=== PATIENT | female | born 1970 | race Two or more races ===

== ENCOUNTER → 2020-09-04 | Outpatient (CLI) | payer MEDICARE, MEDICAID ==
[~2020-09-04] MED LIST: CYCL10TA7 MT; GABA800T97 PO; MORP30TA66 PO; OXYC-105 MT
== END | disposition home or self-care (01) ==
LOC: LAB 11:36
PROVIDERS: ATTEND Neurological Surgery
DX: Z01.812 Encounter for preprocedural laboratory examination (principal); Z20.822 Contact with and (suspected) exposure to COVID-19
CPT/HCPCS: 87426